=== PATIENT | female | born 1965 | race American Indian/Alaskan Native ===

== ENCOUNTER 2020-11-15 06:48 | Inpatient (IN) | payer OTHER ==
[2020-11-05 14:27] LABS: Basophils # (Auto) 0.1 K/mm3 (0.0-0.1); Basophils % (Auto) 1.2 % (0.0-1.8); Eosinophils % (Auto) 0.8 % (0.0-4.3); Hematocrit 37.8 % (30.3-42.9); Lymphocytes % (Auto) 44.7 % (13.4-35.0); Mean Corpuscular HGB Conc 34 % (30-34); Mean Corpuscular Volume 94 fl (79-97); Monocytes # (Auto) 0.4 K/mm3 (0.0-0.8); Monocytes % (Auto) 8.9 % (0.0-7.3); Platelet Count 233 K/mm3 (140-440); Red Blood Count 4.03 M/mm3 (3.65-5.03)
[2020-11-05 14:46] LABS: Blood Urea Nitrogen 11 mg/dL (7-17); Calcium 9.9 mg/dL (8.4-10.2); Hemolysis Index 4
[2020-11-05 14:48] LABS: BUN/Creatinine Ratio 18
--- NOTE | 2020-11-05 15:58 | Anesthesia Consultation ---
Anesthesia Consult and Med Hx Date of service: 11/15/20 - Airway Anesthetic Teeth Evaluation: Good (multiple missing teeth, none loose), Chipped (top incisors) ROM Head & Neck: Adequate Mental/Hyoid Distance: Adequate Mallampati Class: Class II Intubation Access Assessment: Probably Good - Pulmonary Exam CTA: Yes - Cardiac Exam Cardiac Exam: RRR - Pre-Operative Health Status ASA Pre-Surgery Classification: ASA2 Proposed Anesthetic Plan: General Nerve Block: TAP - Pulmonary Hx Smoking: No Hx Respiratory Symptoms: No Hx Sleep Apnea: No (CONTRERAS PRE SCREEN LOW RISK) - Cardiovascular System Hx Hypertension: Yes Hx Heart Attack/AMI: No Hx Percutaneous Transluminal Coronary Angioplasty (PTCA): No - Central Nervous System CVA: No Hx Psychiatric Problems: Yes (anxiety/depression) - Endocrine Hx Renal Disease: No Hx Liver Disease: No Hx Insulin Dependent Diabetes: No Hx Non-Insulin Dependent Diabetes: No (pre-DM; no meds) Hx Thyroid Disease: No - Hematic Hx Anemia: No - Additional Comments Anesthesia Medical History Comments: No hx anesthetic complications.
--- NOTE | 2020-11-14 19:48 | History and Physical Report ---
History of Present Illness Date of examination: 11/15/20 Chief complaint: left ovarian cyst ~5cm(tumor markers negative) dyspareunia pelvic pain Past History Past Medical History: hypertension Past Surgical History: hysterectomy, other (laparoscopic BTL) Family/Genetic History: none Social history: no significant social history Medications and Allergies Allergies Allergy/AdvReac Type Severity Reaction Status Date / Time fluconazole [From Diflucan] AdvReac Swelling Verified 11/15/20 08:04 Home Medications Medication Instructions Recorded Confirmed Last Taken Type ALPRAZolam [Xanax] 1 mg PO BID 02/18/13 11/02/20 Unknown History Sertraline [Zoloft] 100 mg PO QDAY 02/18/13 11/02/20 Unknown History Lisinopril/Hydrochlorothiazide 1 tab PO DAILY 09/20/13 11/02/20 Unknown History [Zestoretic 10-12.5 mg] Active Meds: Active Medications Acetaminophen (Acetaminophen 500 Mg Tab) 1,000 mg PO PREOP OLIVIA Stop: 11/15/20 23:59 Celecoxib (Celecoxib 200 Mg Cap) 200 mg PO PREOP NR Stop: 11/15/20 23:59 Fentanyl (Fentanyl 100 Mcg/2 Ml Inj) 100 mcg IV ONCE PRN PRN Reason: sedation for nerve block Gabapentin (Gabapentin 300 Mg Cap) 300 mg PO PREOP NR Stop: 11/15/20 23:59 Lactated Ringer's (Lactated Ringers) 1,000 mls @ 100 mls/hr IV DIRECT OLIVIA Stop: 11/15/20 23:59 Midazolam HCl (Midazolam 2 Mg/2 Ml Inj) 2 mg IV PREOP NR Stop: 11/15/20 23:59 - Vital Signs Vital signs: Vital Signs Temp Pulse Resp BP Pulse Ox 98.5 F 76 20 113/73 100 11/05/20 14:05 11/05/20 14:05 11/05/20 14:05 11/05/20 14:05 11/05/20 14:05 Temp Pulse Resp BP Pulse Ox 98.5 F 76 20 113/73 100 11/05/20 14:05 11/05/20 14:05 11/05/20 14:05 11/05/20 14:05 11/05/20 14:05 - Physical Exam Breasts: Positive: deferred Cardiovascular: Regular rate Lungs: Positive: Clear to auscultation Abdomen: Positive: normal appearance, soft, normal bowel sounds Genitourinary (Female): Positive: normal external genitalia, normal perenium Vulva: both: normal Vagina: Positive: normal moisture Uterus: Positive: absent Adnexa: left: mass, tenderness Anus/Rectum: Positive: normal perianal skin Extremities: Positive: normal Deep Tendon Reflex Grade: Normal +2 Results Result Diagrams: 11/05/20 14:05 11/05/20 14:05 All other labs normal. 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
[~2020-11-15 06:48] MED LIST: ACETAMINOPHEN 500 MG TAB PO SCH; CELECOXIB 200 MG CAP PO NR; GABAPENTIN 300 MG CAP PO NR; MIDAZOLAM 2 MG/2 ML INJ IV NR; fentaNYL 100 MCG/2 ML INJ IV PRN
[2020-11-15] MEDS ORDERED: ONDANSETRON 4 MG/2 ML INJ IV PRN ×2 (08:04→11:00)
--- NOTE | 2020-11-15 08:04 | Anesthesia Day of Surgery ---
Anesthesia Day of Surgery - Day of Surgery Patient Examined: Yes Patient H&P Reviewed: Yes Patient is NPO: Yes
[2020-11-15] MEDS ORDERED: BUPIVACAINE/PF (0.25%) 2.5 MG/ML 30 ML VIAL INFILTRATI ONE (08:12)
[2020-11-15] MEDS ORDERED: dexAMETHasone 4 MG/ML VIAL ONE (08:12)
[2020-11-15] MEDS ORDERED: cloNIDine/PF 1,000 MCG/10 ML VIAL EP ONE (08:12)
[2020-11-15] MEDS ORDERED: LIDOCAINE (1%) 10 MG/1 ML VIAL 20 ML MDV ONE (08:12)
[2020-11-15] MEDS: LACTATED RINGERS 1,000 ML IV SCH ×2 (08:41→22:23)
[2020-11-15] MEDS ORDERED: propofoL 200 MG/20 ML VIAL IV ONE (08:46)
[2020-11-15] MEDS ORDERED: HYDROmorphone 1 MG/1 ML INJ ONE (08:46)
[2020-11-15] MEDS ORDERED: ROCURONIUM 50 MG/5 ML INJ IV ONE (08:47)
[2020-11-15] MEDS ORDERED: LIDOCAINE MPF (2%) 20 MG/1 ML VIAL 5 ML ONE (08:47)
[2020-11-15] MEDS ORDERED: ceFAZolin/STERILE WATER 2 GM/20 ML SYRINGE IV NR (09:00)
[2020-11-15] MEDS ORDERED: BUPIVACAINE/PF (0.5%) 5 MG/1 ML 30 ML VIAL INFILTRATI ONE (09:37)
--- NOTE | 2020-11-15 09:57 | Operative Report ---
Operative Report Operative Report: Preoperative diagnosis: Pelvic pain, deep dyspareunia, left ovarian cyst Postoperative diagnosis: same Procedure: Operative laparoscopy with left salpingo-oophorectomy and left ovarian cystectomy Surgeon Dr. Oly Carmona Assist Dr. Christi hopper Anesthesia GETA Complications none IV fluids 1 L crystalloid EBL less than 100 mL Urine output adequate and clear Drains Delgadillo to gravity Stable to PACU Findings: large left ovarian cyst, atrophic right ovary adherent to posterior peritoneum Procedure: Patient was counseled in preop regarding r/b/c and alternatives to the procedure, informed consent obtained. She was taken to the operative room where she received excellent GETA. She was then placed in the dorsal lithotomy position, prepped and draped in the usual fashion. 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 A sponge stick was placed atraumatically in the vagina for manipulation of the abdominal viscera. Attention turned tot he abdomen, an infraumbilical incision was made with the scalpel and a Veress needle inserted atraumatically. Correct placement of the Veress needle confirmed with NS syringe testing. A 100mm port was then placed into the abdomen after adequate insuflation with CO2 gas. The patient was then paced in steep trendelenburg and the abdomen was inspected under direct visualization. The left adnexa contained a large 7cm ovarian cyst and the right adnexa contained an adherent atrophic ovary that appreared normal. Two additional 5mm ports were placed(suprapubic and left lateral) to allow sal manipulaton of the cyst and for use of the Ligasure. Usig the Ligasure the left ovarian cyst was freed fron the left abdominal wall, placed in an endocatch bag and removed from the abdomen. Excellent hemostasis, no intra-abdominal spillage of cyst. The right ovary left in situ second to adhesions. No additional pathology noted. The trochars were then removed and the patient taken out of trendelenburg. THe abdominal incisions closed with monocryl. She was extubated in stable condition and taken to PACU. Her family was notified of her status upon completion of the procedure. no complications. All sponge, needle and instrument counts were correctmillie Carmona MD
[2020-11-15] MEDS ORDERED: ACETAMINOPHEN 325 MG TAB PO PRN (10:30)
[2020-11-15] MEDS ORDERED: dexAMETHasone 20 MG/5 ML VIAL ONE (10:42)
[2020-11-15] MEDS ORDERED: ONDANSETRON 4 MG/2 ML INJ ONE (10:43)
[2020-11-15] MEDS ORDERED: HYDROcodone/ACETAMINOPHEN 5-325 MG TAB PO PRN (11:00)
[2020-11-15] MEDS ORDERED: PROMETHAZINE 25 MG RECT SUPP PR PRN (11:00)
[2020-11-15] MEDS ORDERED: WITCH HAZEL/ GLYCERIN PAD TP PRN (11:00)
[2020-11-15] MEDS ORDERED: PROMETHAZINE 25 MG TAB PO PRN (11:00)
[2020-11-15] MEDS ORDERED: diphenhydrAMINE 25 MG CAP PO PRN (11:00)
[2020-11-15] MEDS ORDERED: KETOROLAC 30 MG/1 ML INJ IV PRN (11:00)
[2020-11-15] MEDS ORDERED: LANOLIN/ZINC/DIMETHICONE (LANSINOH) 7 GM TP PRN (11:00)
[2020-11-15] MEDS ORDERED: SODIUM CHLORIDE 0.9% IRR 1,500 ML BOTTLE IR ONE (11:02)
[2020-11-15] MEDS ORDERED: NEOSTIGMINE 10MG/10 ML INJ MDV ONE (12:26)
[2020-11-15] MEDS ORDERED: GLYCOPYRROLATE 0.4 MG/2 ML INJ ONE ×2 (12:26→12:28)
[2020-11-15] MEDS ORDERED: KETOROLAC 30 MG/1 ML INJ ONE (12:29)
[2020-11-15] MEDS ORDERED: MORPHINE 4 MG/1 ML INJ IV PRN (12:30)
[2020-11-15] MEDS: HYDROmorphone 1 MG/1 ML INJ IV PRN ×3 (12:41→13:01)
[2020-11-15] MEDS: IBUPROFEN 600 MG TAB PO SCH ×2 (13:03→17:38)
--- NOTE | 2020-11-15 14:43 | Post Anesthesia Evaluation ---
- Post Anesthesia Evaluation Patient Participated: Yes Airway Patent: Yes Stable Respiratory Function: Yes Nausea/Vomiting: No Temp > 96.8F: Yes Pain Manageable: Yes Adequeate Hydration: Yes Anesthesia Complications: No
[2020-11-15] MEDS ORDERED: MAGNESIUM HYDROXIDE (MOM) ORAL LIQD UDC PO PRN (22:00)
[2020-11-16] MEDS: IBUPROFEN 600 MG TAB PO SCH ×2 (01:14→06:34)
[2020-11-16 03:26] LABS: Hematocrit 34.5 % (30.3-42.9); Hemoglobin 11.7 gm/dl (10.1-14.3)
--- NOTE | 2020-11-16 09:50 | Progress Note ---
Subjective - Subjective Date of service: 11/16/20 Interval history: meets discharge criteria fup outpatient Nathanael Carmona MD Patient reports: appetite normal, voiding normally, pain well controlled, ambulating normally Objective - Vital Signs Latest vital signs: Vital Signs Temp Pulse Pulse Resp Resp BP BP 11/16/20 08:10 11/16/20 07:37 98.3 F 69 18 123/74 11/16/20 06:34 18 11/16/20 06:23 18 11/16/20 05:53 18 11/16/20 05:32 98.1 F 70 18 126/78 11/16/20 01:45 18 11/16/20 01:15 18 11/16/20 01:14 18 11/16/20 01:00 97.4 F L 67 16 135/85 11/15/20 21:27 18 11/15/20 21:00 70 18 11/15/20 20:29 98.0 F 80 18 119/70 11/15/20 16:46 97.5 F L 69 16 118/71 11/15/20 14:10 78 16 11/15/20 14:00 98.7 F 75 17 112/64 112/64 11/15/20 13:45 64 15 105/63 11/15/20 13:31 16 11/15/20 13:30 62 12 101/61 11/15/20 13:21 15 11/15/20 13:15 97.4 F L 65 20 102/61 11/15/20 13:11 17 11/15/20 13:03 16 11/15/20 13:01 18 11/15/20 13:00 71 12 106/66 11/15/20 12:51 12 11/15/20 12:45 67 14 112/62 11/15/20 12:30 64 64 H 107/62 11/15/20 12:25 59 L 20 106/58 11/15/20 12:20 60 16 90/56 11/15/20 12:16 97.1 F L 61 14 90/56 Pulse Ox 11/16/20 08:10 99 11/16/20 07:37 97 11/16/20 06:34 11/16/20 06:23 11/16/20 05:53 11/16/20 05:32 99 11/16/20 01:45 11/16/20 01:15 11/16/20 01:14 11/16/20 01:00 99 11/15/20 21:27 11/15/20 21:00 100 11/15/20 20:29 98 11/15/20 16:46 100 11/15/20 14:10 98 11/15/20 14:00 99 11/15/20 13:45 95 11/15/20 13:31 11/15/20 13:30 96 11/15/20 13:21 11/15/20 13:15 97 11/15/20 13:11 11/15/20 13:03 11/15/20 13:01 11/15/20 13:00 98 11/15/20 12:51 11/15/20 12:45 100 11/15/20 12:30 100 11/15/20 12:25 100 11/15/20 12:20 100 11/15/20 12:16 100 Intake and Output 11/15/20 11/16/20 11/16/20 23:59 07:59 15:59 Intake Total 1210 720 Output Total 120 1700 Balance 1090 -980 Intake: IV 1010 Lactated Ringers 1,000 ml 1000 @ 100 mls/hr IV DIRECT OLIVIA Rx#:[id number] Left Hand 10 Oral 200 480 Intake, Free Water 240 Output: Urine 120 1700 Indwelling Catheter 120 1700 Other: Total, Intake Amount 200 480 Total, Output Amount 120 800 Voiding Method Indwelling Catheter - Labs Labs: Abnormal lab results 11/15/20 Range/Units 12:24 POC Glucose 146 H (70-105) mg/dL
--- NOTE | 2020-11-16 09:51 | Discharge Summary ---
Providers - Providers Date of Admission: 11/15/20 06:48 Date of discharge: 11/16/20 Attending physician: ZULEIKA KITCHEN MD Primary care physician: [employer] Hospitalization Reason for admission: other (left ovarian cyst SP left salpingoophorectomy with ovarian cystectomy(laparascopic)) Condition at discharge: Stable Disposition: 01 HOME / SELF CARE / HOMELESS Plan - Discharge Medications Prescriptions: Ibuprofen [Motrin] 600 mg PO Q8H PRN #60 tablet PRN Reason: Pain oxyCODONE /ACETAMINOPHEN [Percocet 5/325] 1 tab PO Q6HR PRN #20 tablet PRN Reason: Pain - Provider Discharge Summary Additional instructions: [] Smoking cessation referral if applicable(refer to patient education folder for contact #) [] Refer to [facility] Booklet Call your doctor immediately for: * Fever > 100.5 * Heavy vaginal bleeding ( >1 pad per hour) * Severe persistent headache * Shortness of breath * Reddened, hot, painful area to leg or breast * Drainage or odor from incision. * Keep incision clean and dry at all times and follow doctor's instructions regarding bathing/showering - Follow up plan Follow up: PRIMARY CAREMD [Primary Care Provider] - 7 Days
[2020-11-16 12:21] VITALS: BP 133/76
--- NOTE | 2020-11-16 12:54 | Post Anesthesia Evaluation ---
- Post Anesthesia Evaluation Patient Participated: Yes Airway Patent: Yes Stable Respiratory Function: Yes Nausea/Vomiting: No Temp > 96.8F: Yes Pain Manageable: Yes Adequeate Hydration: Yes Anesthesia Complications: No Block Receding Appropriately: Not Applicable Patient on Ventilator: No
== END 2020-11-16 12:55 | disposition home or self-care (01) | DRG 743 ==
LOC: 3A 06:48 → OB 10:29
PROVIDERS: ADMIT Obstetrics & Gynecology; ATTEND Obstetrics & Gynecology
PROC: 0UB14ZZ Excision of Left Ovary, Percutaneous Endoscopic Approach (ICD-10-PCS; principal; 2020-11-15)
DX: N83.202 Unspecified ovarian cyst, left side (principal); F41.9 Anxiety disorder, unspecified; F32.9 Major depressive disorder, single episode, unspecified; I10 Essential (primary) hypertension; Z90.710 Acquired absence of both cervix and uterus
CPT/HCPCS: 36415; 80048; 82962; 85014; 85018; 85025; 86850; 86900; 86901; 88305; G0378; A6250; J0735; J1100; J1170; J1885; J2250; J2270; J2405; J2704; J2710; J7120